=== PATIENT | male | born 1955 | race Caucasian/White ===

== ENCOUNTER 2023-06-03 09:28 | Outpatient (AMB) | payer BC, SELFPAY ==
--- NOTE | 2023-06-03 09:42 | HO.SPINEOV ---
Intake Intake Visit Reasons: lumbar stenosis Intake Note: Mr. Dixon is here today c/o low back pain. MRI done @ [facility]. Financial Analyst Accountant Required: No Assessment & Plan Assessment & Plan (1) Lumbar radiculopathy: Code(s): M54.16 - Radiculopathy, lumbar region Plan Dear Duncan Thank you for referring Mr Dixon to our office today. He is a very nice 68-year-old diabetic who presents to the office today for evaluation of a pain in his right buttock that goes down into his right outer thigh and his right calf that started about 6 weeks ago. He plays tennis frequently and noticed that after playing for an extended period of time longer than usual he felt the pain in the right side of his buttock. He has felt this pain before but at this time the intensity went up significantly and he started to have a lot of difficulty walking. He waited a few weeks thinking it would just go away. He tried taking Tylenol but it did not help. He can not take anti-inflammatories because of chronic kidney disease. He then sought out help, was seen in your office for evaluation and a lumbar MRI was done and showed severe stenosis at L4-5 and he was referred to us for evaluation. He denies any weakness, numbness. The pain is aggravated with any standing and walking. After about 20 steps he has to sit down and the pain will completely go away. He has no focal back pain. He has no cauda equina symptoms. PMH: He is a diabetic, his last A1c was 7.2, chronic kidney disease stage 3, hyperlipidemia, hyperparathyroidism, vitamin-D deficiency, OCD, hypertension, pyloric stenosis surgery when he was a very young baby. Denies any heart attacks, strokes, bleeding disorders or pulmonary problems. Social hx: He does not smoke, does not drink or use any recreational drugs Medications: Tramadol, gabapentin, fluoxetine, lisinopril, metoprolol, amlodipine, fenofibrate, simvastatin, insulin, Jardiance Allergies: No drug allergies Physical exam: He is awake alert oriented no acute distress, he has using a cane to get around the office today because he is uncomfortable. He has a slight detectable weakness in the right tibialis which I would rate as 4/5. Reflexes absent at the knees and Achilles. Imaging review: Lumbar MRI done at [facility] shows multilevel degenerative disc disease, congenitally narrow spinal canal with severe central canal stenosis at L4-5, bilateral foraminal stenosis, central disc bulge at L5-S1 as well as bilateral L5 foraminal narrowing. I believe there is a small piece of herniated disc sitting along the right at the L4-5 disc level. It is not reported by the radiologist but I believe it is compressing the right L5 nerve root. Impression: 68-year-old male presents to the office today for evaluation of an acute onset of right buttock and right leg pain consistent with an L5 radiculopathy while playing tennis. He is given it about 6 weeks and it is not getting better. He denies any weakness or numbness but on my examination I was able to detect slight dorsiflexion weakness. To this point he has done no dedicated conservative treatment other than tincture of time and some Tylenol. His MRI shows severe stenosis at L4-5 and what I believe to be maybe a small piece of herniated disc at this level. He has foraminal stenosis at L4 and L5 as well and a central disc bulge at L5-S1 that I do not believe is compressing any nerves. To start with basic conservative treatment would be a good 1st option, I am going to send him to PT for 6 weeks, but I would like to re-evaluate in 2 weeks to make sure his foot is not getting any worse in terms of weakness. If he has not seeing any success with PT and the foot is still weak at that point, I told him this is something Dr. Sosa would normally offer him a right L4-5 decompression, possible diskectomy. We reviewed all the pertinent risks and benefits of surgery. I told him that the success rate for surgery in the leg pain is 90%. The weakness in the foot however, is harder to predict with surgery. We will re-evaluate in 2 weeks. I did send him in a prescription for Medrol Dosepak with Pepcid. He will adjust his insulins accordingly if his blood sugars go up. I told him if they escalate significantly just to stop the steroid. Pt was given risk and benefits of surgery including but not limited to infection, hematoma , nerve injury,durotomy, weakness,bowel/bladder injury, persistent pain, persistent foot weakness as well as the option to continue with conservative treatment and patient wishes to proceed with surgery. Pt is aware they should stop their motrin, aspirin 7 days prior to surgery. All questions were answered to the best of our ability. If there is anything about this patients medical history that we have overlooked or concerns you have about us proceeding with surgery we would appreciate any input you can offer. Thank you for allowing us to care for your patient. The total time spent with this visit with this patient was 45 minutes reviewing history, physical exam, lumbar imaging review, and implementation of treatment plan or further diagnostic testing Cain Sosa MD,PhD [facility] Orders: Orders PT Evaluation and Treatment Today M54.16 - Radiculopathy, lumbar region Medications: New methylprednisolone 4 mg PO DAILY 21 ea 0RF famotidine (Pepcid) 20 mg PO BID 10 tabs 0RF Coding Level of Care Code New Pt Level 4 (10643) Diagnoses Lumbar radiculopathy M54.16
== END 2023-06-03 10:25 | disposition home or self-care (01) ==
PROVIDERS: PCP Internal Medicine; Referring Provider Physician Assistant; Visit Provider Physician Assistant
DX: M54.16 Radiculopathy, lumbar region (principal)
CPT/HCPCS: 99204

== ENCOUNTER → 2023-06-03 09:28 | Outpatient (BNVA) | payer BC, SELFPAY | PROVIDERS: PCP Internal Medicine; Referring Provider Physician Assistant; Visit Provider Physician Assistant ==

== ENCOUNTER 2023-06-17 11:26 | Outpatient (AMB) | payer BC, SELFPAY ==
--- NOTE | 2023-06-17 11:34 | MHC.OFFVIS ---
Intake Intake Visit Reasons: 2 weeks f/up Pickers Material Handlers Required: No Assessment & Plan Assessment & Plan (1) Lumbar radiculopathy: Code(s): M54.16 - Radiculopathy, lumbar region Plan Cain is back in the office today to review his progress. The steroid helped him quite a bit. He was asking for more of it. The foot weakness is not better but it is not worse. He has been going to physical therapy now for few weeks and he seems to enjoy going there. The pain may be slightly better but he has not convinced that it is had a meaningful improvement. We reviewed the surgery again, specifically the right L4-5 microdiskectomy possible right L4 foraminotomy to address the leg pain in the foot weakness. We have tentatively scheduled him for July, but if things improve he will call us and let us know cancel the surgery. Otherwise the plan will be to continue with surgery for that date. Total amount of time spent in this visit was 20 minutes in discussion of symptoms, lumbar MRI imaging results and subsequent plan of care Cain Sosa MD,PhD [facility] Coding Level of Care Code Est Pt Level 3 (87624) Diagnoses Lumbar radiculopathy M54.16
== END 2023-06-17 12:03 | disposition home or self-care (01) ==
PROVIDERS: PCP Internal Medicine; Visit Provider Physician Assistant
DX: M54.16 Radiculopathy, lumbar region (principal)
CPT/HCPCS: 99213

== ENCOUNTER → 2023-06-17 11:26 | Outpatient (BNVA) | payer BC, SELFPAY | PROVIDERS: PCP Internal Medicine; Visit Provider Physician Assistant ==

== ENCOUNTER 2023-07-26 09:00 | Outpatient (RCR) | payer BC, SELFPAY ==
--- NOTE | 2023-06-10 11:55 | MHC.PT.EP ---
[facility] [place] Office [place] Office [place] Office [address] Keily Oh [address] [phone] F: [phone] F: [phone] F: [phone] F: [phone] Physical Therapy Plan of Care Date of Evaluation: 06/10/23 Date of Surgery: Diagnosis: radiculopathy, lumbar region evaluate and treat lumbar DDD, stenosis, R foot weakness Assessment: 68 y/o male referred to PT with lumbar radiculopathy and R foot weakness. S/s consistent with lumbar derangement resulting in pain and difficulty with walking, standing, stairs, and hobbies such as tennis secondary to decreased lumbar AROM, decreased hip AROM, decreased strength (especially hip flexor and ankle dorsiflexion), sensation intact, unable to elicit reflexes and impaired gait pattern. Recommend PT 2x/week for 6 weeks to address impairments, implement HEP, and optimize functional mobility. Recommend PT 2x/week for 6 weeks to address impairments, implement HEP and optimize functional mobility. Frequency and Duration: The patient will be seen 2x/week for 6 weeks Short Term Goals: 3 weeks Compliant with HEP Pt will reports 50% decrease in pain with standing Size Worker Goals: 6 weeks I with HEP and self management of sx Pt will be able to ambulate > 25 min with pain < 3/10 Pt will improve R ankle dorsiflexion to 4-/5 to faciliate gait Improve Oswestry to 15/50 (IR 24/50) Treatment Plan: Modalities to reduce pain, spasms and effusion. Manual therapy to restore motion and function. Therapeutic exercise to improve strength and flexibility. Neuromuscular re-education for posture and balance. Therapeutic activities to return to functional activities of daily living. Electronically signed by: Briana Corbin PT Please sign and return to therapist. Thank you for your referral.
--- NOTE | 2023-08-26 13:22 | MHC.PT.DC ---
[facility] [place] Office [place] Office [place] Office [address] Keily Oh [address] [phone] F: [phone] F: [phone] F: [phone] F: [phone] Physical Therapy Discharge Report Diagnosis: radiculopathy, lumbar region evaluate and treat lumbar DDD, stenosis, R foot weakness Date of Surgery: Date of Evaluation: 06/10/23 Date of Discharge: 07/27/23 Treatments to Date: 12 Cancellations to Date: 0 No Shows to Date: 0 Discharge Status: Improved Function Independent with HEP Discharge Summary: Pt reports feeling better overall and has elected to cancel his surgery. His hip strength has improved and he is able to ambulate for > 20 minutes now. D/c at this time to I HEP Electronically signed by: Briana Corbin PT Please sign and return to therapist. Thank you for your referral.
== END 2023-08-26 13:22 | disposition home or self-care (01) ==
LOC: HO.PTCHIC 09:00
PROVIDERS: PCP Physician Assistant; Visit Provider Physician Assistant
DX: M54.16 Radiculopathy, lumbar region (principal)
CPT/HCPCS: 97110; 97140; 97162

== ENCOUNTER 2024-07-16 16:49 | Emergency (ER) | payer BC, SELFPAY ==
--- NOTE | ~2024-07-16 | XR_ITS ---
CLINICAL HISTORY: Shortness of breath on exertion 2 view chest x-ray Comparison: None Findings: Lungs are well inflated. Mediastinal contours, cardiac silhouette, and pulmonary vasculature are within normal limits. No focal areas of consolidation. No pleural effusion or pneumothorax. IMPRESSION: 1. No acute findings. This document has been electronically signed by: Venkatesh García MD on 07/16/2024 23:41:20
[2024-07-16 17:13] VITALS: BP 210/73; PULSE 54; RESP 16; TEMP 36.6; O2SAT 99; BMI 33.5
--- NOTE | 2024-07-16 17:22 | ECG_ITS ---
Test Reason : hypertinsion Blood Pressure : */* mmHG Vent. Rate : 52 BPM Atrial Rate : 52 BPM P-R Int : 204 ms QRS Dur : 124 ms QT Int : 456 ms P-R-T Axes : 36 -66 54 degrees QTcB Int : 424 ms Sinus bradycardia Left axis deviation Left ventricular hypertrophy with QRS widening ( R in aVL , Alexander product , Romhilt-Campbell ) Inferior infarct , age undetermined Anterolateral infarct , age undetermined Abnormal ECG No previous ECGs available Referred By: Shira Ervin Electronically Signed By: NESTOR MARTIN
[2024-07-16 18:06] LABS: MANUAL DIFF FLAG NO
[2024-07-16 18:14] LABS: Basophils Percent Auto 0.5 % (0-2); Eosinophils Absolute Auto 0.4 X10*3/uL (0.0-0.4); Eosinophils Percent Auto 4.2 % (0-4); Hematocrit 42.5 % (42.0-52.0); Hemoglobin 14.6 g/dl (14.0-18.0); Imm Gran Abs Auto 0.03 X10*3/uL (0.00-0.03); Imm Gran Pct Auto 0.4 % (0.0-0.4); Lymphocytes Absolute Auto 2.3 X10*3/uL (1.2-4.9); Lymphocytes Percent Auto 28.3 % (20-40); Mean Corpuscular HGB Conc 34.4 g/dl (31.0-36.0); Mean Corpuscular Hemoglobin 32.3 pg (27.0-33.0); Mean Platelet Volume 9.2 fL (9.4-12.4); Monocytes Absolute Auto 0.8 X10*3/uL (0.1-1.2); Monocytes Percent Auto 9.1 % (2-11); Neutrophils Absolute Auto 4.8 x10*3/uL (2.0-8.3); Neutrophils Percent Auto 57.5 % (45-73); Platelet Count 218 X10*3/uL (160-400); Red Blood Count 4.52 X10*6/uL (4.60-5.80); Red Cell Distribution Width 11.9 % (11.0-16.0); White Blood Count 8.3 X10*3/uL (4.8-10.8)
[2024-07-16 18:27] LABS: Alanine Aminotransferase 14 U/L (0-40); Albumin Level 3.7 g/dL (3.5-5.0); Anion Gap 12 (12-20); Aspartate Amino Transferase 18 U/L (5-37); Bilirubin Total 0.6 mg/dL (0.0-1.0); Blood Urea Nitrogen 34 mg/dL (9-16); Calcium 9.3 mg/dL (8.4-10.2); Carbon Dioxide 26 mmol/L (22-29); Chloride 108 mmol/L (96-108); Creatinine Clr Calc Pharmacy 35.5; Estimated Glomerular Filt Rate 26; Glucose Random 111 mg/dL (60-115); Magnesium 2.3 mg/dL (1.6-2.6); Potassium 4.4 mmol/L (3.3-5.1); Sodium 142 mmol/L (135-145); Total Protein 7.5 g/dL (6.5-8.0); Troponin-I High Sensitivity 41.4 ng/L (<3.5-35.0)
[2024-07-16 18:30] LABS: Alkaline Phosphatase 46 U/L (39-117)
--- OUTSIDE RECORDS SUMMARY | 2024-07-16 18:49 | XMS_ITS | Encounter Summary ---
Author Organization [facility] Address [address] [place] [address] Phone Care Team Providers Care Vibratory Pile Driver Name Role Phone Lawrence Sommers MD Primary Care Provider [phone] Encounter Details Date Type Department Care Team (Late st Contact Info) Description 07/07/2021 Documentation Only [facility] [address] [place] [id number] Venkatesh Schneider MD [address] [place] [address] Social History Tobacco Use Types Packs/Day Years Used Date Smoking Tobacco: Never Smokeless Tobacco: Never Sex and Gender Information Value Date Recorded Sex Assigned at Not on file Legal Sex Male 4:35 PM EST Gender Identity Not on file Sexual Orientation Not on file documented as of this encounter Plan of Treatment Not on file documented as of this encounter Visit Diagnoses Not on filedocumented in this encounter Care Teams Vibratory Pile Driver Relationship Specialty Start Date End Date Lawrence Sommers MD PCP - General 03/27/19 documented as of this encounter
--- OUTSIDE RECORDS SUMMARY | 2024-07-16 18:49 | XMS_ITS | Clinical Summary ---
Author Organization [facility] Address [address] [place] [address] Care Team Providers Care Equal Opportunity Counselor Name Role Phone Lawrence Sommers MD Primary Care Provider [phone] Allergies No known active allergies Medications albuterol HFA (PROAIR HFA ; PROVENTIL HFA ; VENTOLIN HFA) 90 mcg/actuation inhaler Inhale 2 Puffs into the lungs every 4 hours as needed for Cough or Wheezing. 03/01/2023 Active amLODIPine (NORVASC) 10 mg tablet Take 1 tablet (10 mg total) by mouth 1 (one) time each day. 02/09/2024 Active aspirin 81 mg EC tablet 1 TABLET DAILY Active fenofibrate (LOFIBRA) 160 mg tablet Take 1 tablet (160 mg total) by mouth 1 (one) time each day. 02/09/2024 Active FLUoxetine (PROzac) 40 mg capsule Take 1 capsule (40 mg total) by mouth 1 (one) time each day. 01/17/2024 Active gabapentin (NEURONTIN) 100 mg capsule Take 1 capsule (100 mg total) by mouth every 6 (six) hours. 01/17/2024 Active glucagon (Baqsimi) 3 mg/actuation nasal spray 1 Dose by Nasal route as needed for Other (hypoglycemi a). 09/24/2021 Active insulin glargine (Lantus Solostar U-100 Insulin) 100 unit/mL (3 mL) injection pen 10 units at bedtime. 02/09/2024 Active insulin lispro (HumaLOG KwikPen Insulin) 100 unit/mL injection pen Inject three times a day with meals per sliding scale: 150-200: 7 units; 201-250: 9 units: 251-300:11 units; 301-350: 13 units; 351-400: 15 units 02/09/2024 Active empagliflozin (Jardiance) 10 mg tablet Take 1 tablet (10 mg total) by mouth 1 (one) time each day. 02/09/2024 Active lisinopril (PRINIVIL,ZESTR IL) 40 mg tablet Take 1 tablet (40 mg total) by mouth 1 (one) time each day. 02/09/2024 Active metoprolol tartrate (LOPRESSOR) 100 mg tablet Take 1 tablet (100 mg total) by mouth 3 (three) times a day. 02/09/2024 Active simvastatin (ZOCOR) 80 mg tablet Take 1 tablet (80 mg total) by mouth at bedtime. 02/09/2024 Active pen needle, diabetic 32 gauge x 5/32 needle Use 4 timesa daily with insulin 06/22/2022 Active blood-glucose meter kit 1 Each by Does not apply route as needed for Other. 06/22/2022 Active blood sugar diagnostic (FreeStyle Lite Strips) test strip 1 Each by In Vitro route daily. Use to test blood sugar daily 06/24/2022 Active FREESTYLE LANCETS MISC 1 Each by Does not apply route daily. Use to test blood sugar daily 06/24/2022 Active blood-glucose sensor (FREESTYLE DARYL 3 SENSOR MISC) by Does not apply route. 02/09/2024 Active Active Problems Problem Noted Date Diagnosed Date Proteinuria 11/21/2018 Hyperparathyroidism 04/24/2018 Vitamin D deficiency 04/24/2018 Microalbuminuria 10/12/2017 Type 2 diabetes mellitus with vascular disease 0 06/24/2016 CKD (chronic kidney disease) stage 3, GFR 30-59 ml/min 01/26/2012 Type II diabetes mellitus with renal manifestati ons 09/25/2010 Hyperlipidemia 09/14/2010 Severe obesity (BMI 35.0-39.9) with comorbidity 09/14/2010 Uric acid nephrolithiasis 01/30/2010 OCD (obsessive compulsive disorder) 06/20/2009 Essential hypertension, benign 05/29/2007 Encounters Date Type Department Care Team Description 07/12/2024 Nurse Triage Adult Medicine [address] [phone] Lawrence Sommers MD Hypertension from Last 3 Months Immunizations Name Administration Dates Next Due Influenza Quadravalent, MDCK , 0.5ml, preservative free (Flucelvax) 6mo and older 06/21/2019 Influenza, Unspecified 03/30/2021 Pneumococcal polysaccharide 23 valent (Pneumovax 23) 2yo and older 02/09/2018 Tdap Tetanus diptheria acell ular pertussis (Boostrix; Adacel) 7yo and older 10/15/2023,12/13/2013 Zoster recombinant (Shingrix) 19yo and older ,11/02/2021 Medical History Medical History Date Comments Obese 09/14/2010 DX:Obese Hyperlipidemia 09/14/2010 DX:Hyperlipidemi a Noncompliance with medication regimen 09/14/2010 DX:Noncompliance with medication regimen Social History Tobacco Use Types Packs/Day Years Used Date Smoking Tobacco: Never Smokeless Tobacco: Never Alcohol Use Standard Drinks/Week Comments Not Asked 0 (1 standard drink = 0.6 oz pur e alcohol) Sex and Gender Information Value Date Recorded Sex Assigned at Not on file Legal Sex Male 3:52 AM EST Gender Identity Not on file Sexual Orientation Not on file Obstetrics History Last Filed Vital Signs Vital Sign Reading Time Taken Comments Blood Pressure 128/64 02/09/2024 8:36 AM EDT C Pulse 62 02/09/2024 8:36 AM EDT Temperature - - Respiratory Rate - - Oxygen Saturation - - Inhaled Oxygen Concentration - - Weight 99.3 kg (219 lb) 02/09/2024 8:36 AM EDT Height 177.8 cm (5' 10 ) 02/09/2024 8:36 AM EDT Body Mass Index 31.42 02/09/2024 8:36 AM EDT Plan of Treatment Upcoming Encounters Date Type Department Care Team (Late st Contact Info) Description 07/19/2024 8:00 AM EST Office Visit Adult Medicine [address] [phone] Tanner Jane PA [address] [place] [address] 08/09/2024 8:30 AM EDT Office Visit Endocrinology - [place] [address] [place] [address] Alie Palmer PA [address] [place] [address] Health Maintenance Due Date Last Done Comments Diabetes: Annual Foot Exam 1967 Diabetes: Annual Retina Eye Exam 1967 RSV Immunization Patients 60 + Years Old (1 - Risk 60-74 years 1-dose series) 2017 Pneumococcal Vaccine: 50+ Years (2 of 2 - PCV) 02/09/2019 02/09/2018 Colorectal Cancer Screening: Colonoscopy 05/01/2022 Depression Screening 05/01/2022 Falls Risk Assessment 05/01/2022 Social Influencers of Health Screening 05/01/2022 Diabetes: Annual Urine Albumin-Creatinine Ratio (uACR) 05/06/2022 01/03/2020 COVID-19 Vaccine (2023-2 5 season) 2024 06/18/2021, 10/14/2020, 09/16/2020 Influenza Vaccine (#1) 2024 , 06/21/2019 Diabetes: Blood Sugar Contro l Test (HGBA1C) 08/07/2024 02/08/2024, 02/08/2024 Diabetes: Annual GFR (Glomerular Filtration Rate) 02/07/2025 02/08/2024, 02/08/2024 Hypertension/CHF/CAD Annual BMP Blood Test 02/07/2025 02/08/2024, 02/08/2024 Cholesterol Screening (Lipid Panel) 02/07/2029 02/08/2024, 02/08/2024 DTaP,Tdap,and Td Vaccines (3 - Td or Tdap) 10/14/2033 10/15/2023, 12/13/2013 Hepatitis C Screening Completed 03/15/2018 Zoster Vaccines Completed 01/18/2022, 11/02/2021 HIB Vaccines Aged Out No longer eligi ble based on patient's age to complete this topic HPV Vaccines Aged Out No longer eligi ble based on patient's age to complete this topic Hepatitis A Vaccines Aged Out No long er eligible based on patient's age to complete this topic Hepatitis B Vaccines Aged Out No long er eligible based on patient's age to complete this topic IPV Vaccines Aged Out No longer eligi ble based on patient's age to complete this topic MMR Vaccines Aged Out No longer eligi ble based on patient's age to complete this topic Meningococcal ACWY Vaccine Aged Out N o longer eligible based on patient's age to complete this topic Meningococcal B Vacine Aged Out No lo nger eligible based on patient's age to complete this topic RSV Immunization Patients Under 20 months Aged Out No longer eligible b ased on patient's age to complete this topic Varicella Vaccines Aged Out No longer eligible based on patient's age to complete this topic Procedures Procedure Name Priority Date/Time Associated Diagnosis Comments ANNUAL BMP BLOOD TEST Routine 02/08/2024 HEMOGLOBIN A1C Routine 02/08/2024 LIPID PANEL Routine 02/08/2024 URINE ALBUMIN CREATININE RATIO Routine 01/03/2020 HEPATITIS C SCREENING Routine 03/15/2018 from Last 3 Months or Most Recently Relevant to Health Maintenance Results * Annual BMP Blood Test (02/08/2024) Pathologist [facility] Annual BMP Blood Test abstracted Historical Provider HEALTH MAINTENANCE Final Result * (ABNORMAL) Hemoglobin A1c (02/08/2024) Pathologist [facility] Hemoglobin A1C 7.0(A) <=6.5 % Blood Venous blood specimen / Unknown Historical Provider LAB BLOOD ORDERABLES Cherise l Result * (ABNORMAL) Lipid panel (02/08/2024) Pathologist [facility] LDL/HDL Ratio 6(A) 0 - 4 Triglycerides 252(A) 0 - 150 mg/dL Cholesterol 228(A) 0 - 200 mg/dL HDL 40 >=40 mg/dL LDL Cholesterol 138(A) 0 - 100 mg/dL Blood Venous blood specimen / Unknown Historical Provider LAB BLOOD ORDERABLES Cherise l Result * Urine Albumin Creatinine Ratio (01/03/2020) Pathologist [facility] Urine Albumin Creatinine Ratio abstracted [facility] Provider HEALTH MAINTENANCE Final Result * Hepatitis C Screening (03/15/2018) Pathologist [facility] Hepatitis C Screening abstracted Historical Provider HEALTH MAINTENANCE Final Result from Last 3 Months or Most Recently Relevant to Health Maintenance Care Teams Equal Opportunity Counselor Relationship Specialty Start Date End Date Lawrence Sommers MD PCP - General 04/28/04
--- OUTSIDE RECORDS SUMMARY | 2024-07-16 18:49 | XMS_ITS | Clinical Summary ---
Author Organization [facility], Address [address] [place] [address] [place] [address] Phone Care Team Providers Care Chemical Production Engineer Name Role Phone Lawrence Sommers MD Primary Care Provider [phone] Allergies No known active allergies Medications aspirin 81 MG tablet Take 1 tablet by mouth 1 (one) time each day Active FLUoxetine (PROzac) 20 MG capsule Take 20 mg by mouth 1 (one) time each day Active simvastatin (ZOCOR) 20 MG tablet Take 1 tablet by mouth at bed time Active metoprolol tartrate (LOPRESSOR) 100 MG tablet Take 1 tablet by mouth 3 (three) times a day Active lisinopril (PRINIVIL,ZEST RIL) 40 MG tablet Take 40 mg by mouth 1 (one) time each day Active gabapentin (NEURONTIN) 100 MG capsule Take 100 mg by mouth 1 (one) time each day Active fenofibrate (TRIGLIDE) 160 MG tablet Take 1 tablet by mouth 1 (one) time each day Active amLODIPine (NORVASC) 10 MG tablet Take 1 tablet by mouth 1 (one) time each day Active ergocalciferol (VITAMIN D2) 1.25 MG (84676 UT) capsule Take 50,000 Units by mouth 9 Active BD Pen Needle Deb U/F 32G X 4 [place] [facility] [place] Active hydroCHLOROthi azide (HYDRODIURIL) 25 MG tablet Take 25 mg by mouth 0 Active insulin glargine (Lantus SoloStar) 100 UNIT/ML injection Inject 16 Units under the skin 0 Active Lantus SoloStar 100 UNIT/ML injection INJECT 16 UNITS SUBCUTANEOUSLY AT BEDTIME 0 Active Continuous Blood Gluc Sensor (FreeStyle Anais 2 Sensor) [facility] [place]PL[place] SENS[place] TO SKIN TO CHECK BLOOD GLUCOSE. CHANGE SENSOR EVERY 14 DAYS. 2 Active Baqsimi One Pack 3 MG/DOSE powder INHALE 1 DOSE NASALLY NEEDED FOR HYPOGLYCEMIA 2 Active Insulin Lispro, 1 Unit Dial, 100 UNIT/ML solution pen-injector INJECT SUBCUTANEOUSLY THREE TIMES DAILY WITH MEALS PER SLIDING SCALE: BLOOD SUGAR LEVEL 150-200, INJECT 5 UNITS; 201-250, 7 UNITS; 251-300, 9 UNITS; 301-350, 11 UNITS; 351-400, 13 UNITS. 2 Active traMADol (Ultram) 50 MG tablet Take 1 tablet (50 mg total) by mouth every 6 (six) hours if needed for moderate pain 30 tablet 3 Active predniSONE (DELTASONE) 20 MG tablet Take 0.5 tablets (10 mg total) by mouth 1 (one) time each day 10 tablet 3 Active Empagliflozin (Jardiance) 10 MG tablet Take 10 mg by mouth 1 (one) time each day in the morning 90 tablet 11 3 Active Active Problems Problem Noted Date Diagnosed Date Stage 3b chronic kidney disease 05/25/2019 Overview (05/26/2020): Update for Diagnosis Load Essential hypertension 05/25/2019 Hyperlipidemia 05/25/2019 Hyperparathyroidism 05/25/2019 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 05/25/2019 Renal stone 05/25/2019 Proteinuria 11/21/2018 Vitamin D deficiency 04/24/2018 Type 2 diabetes mellitus 09/25/2010 Immunizations Name Administration Dates Next Due Influenza, MDCK, PF, Quadrivalent 06/21/2019 Influenza, Unspecified 03/30/2021 Pneumococcal Polysaccharide 02/09/2018 Shingrix 01/18/2022,11/02/2021 Tdap 12/13/2013 Social History Tobacco Use Types Packs/Day Years Used Date Smoking Tobacco: Never Smokeless Tobacco: Never Sex and Gender Information Value Date Recorded Sex Assigned at Not on file Legal Sex Male 4:35 PM EST Gender Identity Not on file Sexual Orientation Not on file Last Filed Vital Signs Vital Sign Reading Time Taken Comments Blood Pressure 125/75 02/02/2023 10:48 AM EDT Pulse - - Temperature - - Respiratory Rate - - Oxygen Saturation - - Inhaled Oxygen Concentration - - Weight 106 kg (234 lb) 06/22/2018 12:00 PM EST Height 177.8 cm (5' 10 ) 02/22/2019 12:00 PM EDT Body Mass Index 33.58 06/22/2018 12:00 PM EST Plan of Treatment Health Maintenance Due Date Last Done Comments Colorectal Cancer Screening: Annual FOBT 2006 Colorectal Cancer Screening: Colonoscopy 2006 Colorectal Cancer Screening: Sigmoidoscopy 2006 Pneumococcal Vaccine: 65+ Years (2 of 2 - PCV) 02/09/2019 02/09/2018 Diabetes: Ophthalmology Exam 05/25/2019 Diabetes: Pedal Pulse Checked 05/25/2019 Diabetes: Sensory Foot Exam 05/25/2019 Diabetes: Visual Foot Exam 05/25/2019 Diabetes: Hemoglobin A1C 07/25/2023 023, 07/27/2022, 01/12/2022, Additional history exists Influenza Vaccine (#1) 2024 03/30/2021, 2019 Hepatitis B Vaccine Aged Out No longe r eligible based on patient's age to complete this topic Procedures Procedure Name Priority Date/Time Associated Diagnosis Comments HEMOGLOBIN A1C Routine 07/27/2022 11:56 AM EST Stage 3b chronic kidney disease (HCC) 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 DIAGNOSTIC USE: ??The [place] Diabetes Association (ADA) and the World Health Organization (WHO) recommend the use of HbA1c to diagnose diabetes using a threshold of 6.5%. Patients who have an HbA1c between 5.7% and 6.4% are considered at increased risk for developing diabetes in the future. CAUTION: Falsely low HbA1c results may be observed in patients with hemolytic anemia, homozygous forms of abnormal hemoglobin (e.g. SS, CC, SC), , recent blood loss or hemoglobin F greater than 7%. Fructosamine may be used as an alternate test in these cases. REFERENCE: ADA: Standards of Medical Care in Diabetes 2020, The Journal of Clinical and Applied Research and Education Volume 43, Supplement 1 Testing performed or reported by [facility], a Service of [address] [address] Frances Estevez MD, Roll Clamp Operator [facility]# [id number] Blood (Blood, Venous) 07/27/2022 11:56 AM EST 07/27/2022 11:57 AM EST us Venkatesh Schneider MD LAB BLOOD ORDERABLES Final Re sult [facility] from Last 3 Months or Most Recently Relevant to Health Maintenance Insurance [facility] Care Teams Chemical Production Engineer Relationship Specialty Start Date End Date Lawrence Sommers MD PCP - General 03/27/19
--- OUTSIDE RECORDS SUMMARY | 2024-07-16 18:49 | XMS_ITS | Encounter Summary ---
Author Organization [facility] Address [address] [place] [address] Care Team Providers Care Plug Stitcher Name Role Phone Lawrence Sommers MD Primary Care Provider [phone] Reason for Visit * Reason Onset Date Comments Hypertension 07/12/2024 Encounter Details Date Type Department Care Team (Late st Contact Info) Description 07/12/2024 Nurse Triage Adult Medicine [address] [address] Lawrence Sommers MD [address] [place] [id number] Hypertension Social History Tobacco Use Types Packs/Day Years [...] on file documented as of this encounter Progress Notes * Patricia Rust RN - 07/12/2024 9:53 AM EST He also takes Lisinopril and Amlodipine. He did not state these medications to me but remembered when read off of the medication list. He was encouraged to go back to taking his Metoprolol three times a day as directed. He was instructed to go to the ER for further evaluation and treatment. He is in agreement with this plan and states he will go to [facility] ER. Reason for Disposition [1] Systolic BP >= 160 OR Diastolic >= 100 AND [2] cardiac (e.g., breathing difficulty, chestpain) or neurologic symptoms (e.g., new-onset blurred or double vision, unsteady gait) Answer Assessment - Initial Assessment Questions 1. BLOOD PRESSURE: What is your blood pressure? Did you take at least two measurements 5 minutesapart? Today his BP 190/90 2. ONSET: When did you take your blood pressure? He took his BP yesterday and it was 200/100 3. HOW: How did you take your blood pressure? (e.g., automatic home BP monitor, visiting nurse) He states he checked his BP with an automatic cuff on his arm 4. HISTORY: Do you have a history of high blood pressure? He had a history of HTN and was placed on Metoprolol. 5. MEDICINES: Are you taking any medicines for blood pressure? Have you missed any doses recently? Metoprolol. He takes it 2-3 times a day. He takes it at breakfast and lunch but not at dinner. He has been taking the Metoprolol twice a day for month. 6. OTHER SYMPTOMS: Do you have any symptoms? (e.g., blurred vision, chest pain, difficulty breathing, headache, weakness) He is reporting shortness of breath 7. : Is there any chance you are ? When was your last menstrual period? No. Pt is a male. Protocols used: Blood Pressure - High-A- * Gloria Sanchez - 07/12/2024 9:27 AM EST Patient call requires triage: Symptoms patient is presenting: PT BP is at 190/90 How long has patient had these symptoms?: 1 day For ALL patients calling to schedule any appointment (routine, sick visit, follow up, consult, etc.) in the outpatient setting please ask the following questions: Do you have fever of higher than 101, sore throat with difficulty swallowing or severe shortness ofbreath? no If YES to any of these above symptoms, send a message to triage and do not book. Red dot. If no, an audio or video visit should be booked. Have you had close contact with someone with Coronavirus in the last 14 days? no Have you traveled abroad? no Have you traveled recently to another state outside of [place], [place], [place], [place], [place], [place], [place]? no o If yes, did you quarantine for 14 days or have a negative covid test? no If yes to any of the above, patient is not to be scheduled in office until after 14 day quarantine or negative covid test. If pain or injury related was it due to an accident at work or from a motor vehicle accident? If yes, date of accident/Injury: No If yes, gather 3rd republican insurance information Third Green Party Information: not applicable PCP: Lawrence Sommers MD Payor: / No coverage found. documented in this encounter Plan of Treatment Upcoming Encounters Date Type Department Care Team (Late st Contact Info) Description 07/19/2024 8:00 AM EST Office Visit Adult Medicine [address] [phone] Tanner Jane PA [address] [place] [address] 08/09/2024 8:30 AM EDT Office Visit [address] [phone] Alie Palmer PA [address] [place] [address] documented as of this encounter Visit Diagnoses Not on filedocumented in this encounter Care Teams Plug Stitcher Relationship Specialty Start Date End Date Lawrence Sommers MD PCP - General 04/28/04 documented as of this encounter
[2024-07-16 23:05] VITALS: BP 190/74; PULSE 52; RESP 18; TEMP 36.3; O2SAT 99
--- NOTE | 2024-07-16 23:07 | PC.NURSE ---
Pt a&ox4, no signs of distress. Pt ambulates with a steady gait. Pt denies pain at this time Pt reports b/p higher than usual. Plan of care ongoing.
--- NOTE | 2024-07-16 23:09 | ED_ITS ---
HPI - General Adult General Chief complaint: General Medical Stated complaint: high bp Time Seen by Provider: 07/16/24 23:09 History of Present Illness ED Provider: Keisha RENEE narrative: The patient is a 69-year-old male. He has a history of hypertension and chronic kidney disease. He is on several antihypertensive medications. He says about 2 weeks ago he checked his blood pressure at home for the 1st time in a long time. He says that he thought that he was feeling weaker than usual and that he has been somewhat short of breath on exertion when playing tennis or shoveling snow. That is why he checked his blood pressure. He ultimately contacted his primary care doctor's office and was advised to come to the emergency room. He has had no headache. No chest pain. No nausea or vomiting. No fever, sweats, chills. No back pain. Related Data Previous Rx's ?Medication ?Instructions ?Recorded famotidine 20 mg tablet (Pepcid) 20 mg PO BID #10 tabs 06/03/23 methylprednisolone 4 mg tablets in 4 mg PO DAILY #21 ea 06/03/23 a dose pack Allergies Allergy/AdvReac Type Severity Reaction Status Date / Time No Known Allergies Allergy Verified 07/16/24 17:17 Review of Systems 2 Review of Systems: Yes all other systems are reviewed and are negative PMFSH Social History Social History Smoked in Last 30 Days: No Use of substances other than those prescribed or required for medical reasons: No Advance Directives: No Advance Directives Information Provided: No Physical Exam ED Vital Signs: Vital Signs - 24 hr 07/16/24 17:13 07/16/24 23:05 07/16/24 23:57 Temperature 97.9 F 97.4 F 97.4 F Pulse Rate 54 52 52 Respiratory Rate 16 18 18 Blood Pressure 210/73 H 190/74 H 190/74 H Pulse Oximetry 99 99 99 Oxygen Delivery Method Room Air Room Air Room Air BMI result Body Mass Index 33.5 Const Other: The patient is awake, alert, pleasant, cooperative, no apparent distress. HENMT Other: Face is symmetrical. Mucous membranes moist. Eyes General: appearance normal, both eyes and all related structures Neck Neck: Yes full ROM and Yes no JVD Resp Other: No crackles Effort & Inspection: normal respiratory effort Auscultation: clear to auscultation bilaterally Cardio Rate: regular rate Rhythm: regular rhythm Heart sounds: S1 normal heart sound present and S2 normal heart sound present GI Other: Abdomen is soft and nontender Skin Other: Skin is dry and unremarkable General skin exam: no rashes or lesions noted Neuro Other: The patient is awake and alert with a normal mental status. Cranial nerves are grossly intact. He moves his extremities normally and appropriately. Extrem Other: No peripheral edema. Medical Decision Making Medical Decision Making MDM Narrative: The patient is a 69-year-old male who was on multi antihypertensive medications. He does not check his blood pressure at home very often. About 2 weeks ago he felt that he was having some degree of dyspnea on exertion. He noticed this when he was shoveling snow and also when he was exercising. He is otherwise asymptomatic. No chest pain. No headache. The patient's blood pressures here are elevated, averaging approximately 200/70. The patient has a creatinine today of 2.46. He says his baseline GFR is around 27. His GFR today is 26. He has a special forces engineer sergeant, Dr. Schneider. I think the patient is stable for discharge from the emergency room to contact his regular providers, particularly his special forces engineer sergeant, for ongoing management of his blood pressure. He had some dyspnea with exertion but he has a clear chest x-ray. His troponins are elevated but not rising. I think his elevated troponins are a result of his renal insufficiency. Lab Data 07/16/24 17:59 07/16/24 17:59 Labs: Lab Results 07/16/24 07/16/24 Range/Units 17:59 23:03 WBC 8.3 (4.8-10.8) X10*3/uL RBC 4.52 L (4.60-5.80) X10*6/uL Hgb 14.6 (14.0-18.0) g/dl Hct 42.5 (42.0-52.0) % MCV 94.0 (80.0-98.0) fL MCH 32.3 (27.0-33.0) pg MCHC 34.4 (31.0-36.0) g/dl RDW 11.9 (11.0-16.0) % Plt Count 218 (160-400) X10*3/uL MPV 9.2 L (9.4-12.4) fL Immature Gran % (Auto) 0.4 (0.0-0.4) % Neut % (Auto) 57.5 (45-73) % Lymph % (Auto) 28.3 (20-40) % [place] % (Auto) 9.1 (2-11) % Eos % (Auto) 4.2 H (0-4) % Baso % (Auto) 0.5 (0-2) % Lymph # (Auto) 2.3 (1.2-4.9) X10*3/uL [place] # (Auto) 0.8 (0.1-1.2) X10*3/uL Eos # (Auto) 0.4 (0.0-0.4) X10*3/uL Baso # (Auto) 0.0 (0.0-0.2) X10*3/uL Abs Immat Gran (auto) 0.03 (0.00-0.03) X10*3/uL Absolute Neuts (auto) 4.8 (2.0-8.3) x10*3/uL Absolute Nucleated RBC 0.000 (0.0-0.012) X10*3/uL Nucleated RBC % (auto) 0.0 (0.0-0.2) /100WBC Sodium 142 (135-145) mmol/L Potassium 4.4 (3.3-5.1) mmol/L Chloride 108 (96-108) mmol/L Carbon Dioxide 26 (22-29) mmol/L Anion Gap 12 (12-20) BUN 34 H (9-16) mg/dL Creatinine 2.46 H (0.5-1.4) mg/dL Estim Creat Clear Calc 35.5 Estimated GFR 26 Random Glucose 111 (60-115) mg/dL Calcium 9.3 (8.4-10.2) mg/dL Magnesium 2.3 (1.6-2.6) mg/dL Total Bilirubin 0.6 (0.0-1.0) mg/dL AST 18 (5-37) U/L ALT 14 (0-40) U/L Alkaline Phosphatase 46 (39-117) U/L Troponin I High Sens 41.4 H 47.8 H (<3.5-35.0) ng/L Total Protein 7.5 (6.5-8.0) g/dL Albumin 3.7 (3.5-5.0) g/dL Discharge Plan Discharge Clinical Impression: Hypertension, Shortness of breath on exertion Patient Disposition: Home, Self-Care Additional Instructions: Your blood pressure is high today but there does not seem to be any acute damage from your blood pressure currently. Your blood pressure medication regimen we will need to be adjusted. I think this would most wisely be done by your special forces engineer sergeant, Dr. Schneider. Please contact his office in the morning and explain that your blood pressure readings has been high despite your current medications. Also stay in touch with your primary care doctor's office. Return to the emergency room if you feel significantly worse. Prescriptions: No Action methylprednisolone 4 mg tablets,dose pack 4 mg PO DAILY Qty: 21 0RF famotidine [Pepcid] 20 mg tablet 20 mg PO BID Qty: 10 0RF Referrals: Lawrence Sommers III, MD [Primary Care Provider] - (Shortness of breath on exertion, high blood pressure) Venkatesh Schneider MD [Physician] - (Shortness of breath on exertion, high blood pressure readings) Interventions: ED Discharge Assessment Last Done: 07/16/24 23:57 Discharge Date/Time: 07/16/24 23:59 Print Language: Belgian
[2024-07-16 23:28] LABS: Troponin-I High Sensitivity 47.8 ng/L (<3.5-35.0)
[2024-07-16 23:57] VITALS: BP 190/74; PULSE 52; RESP 18; TEMP 36.3; O2SAT 99
== END 2024-07-16 23:59 | disposition home or self-care (01) ==
PROVIDERS: Physician Assistant Medical; Emergency Provider Emergency Medicine; PCP Internal Medicine
DX: R06.02 Shortness of breath (principal); R00.1 Bradycardia, unspecified; I10 Essential (primary) hypertension; R94.31 Abnormal electrocardiogram [ECG] [EKG]; Z79.899 Other long term (current) drug therapy
CPT/HCPCS: 36415; 71046; 80053; 83735; 84484; 85025; 93005; 99283; 99284

== ENCOUNTER → 2024-07-16 17:22 | Outpatient (BNV) | payer BC, SELFPAY | PROVIDERS: Emergency Provider Emergency Medicine; PCP Internal Medicine; Visit Provider Internal Medicine | DX: I51.7 Cardiomegaly (principal); R00.1 Bradycardia, unspecified | CPT/HCPCS: 93010 ==

== ENCOUNTER → 2024-07-16 23:21 | Outpatient (BNV) | payer BC, SELFPAY | PROVIDERS: Emergency Provider Emergency Medicine; PCP Internal Medicine; Visit Provider Radiology Diagnostic Radiology | DX: R06.02 Shortness of breath (principal) | CPT/HCPCS: 71046 ==